=== PATIENT | female | born 1995 | race Caucasian/White ===

== ENCOUNTER 2023-10-22 20:24 | Emergency (ER) | payer BC, SELFPAY ==
[2023-10-22 20:25] VITALS: BP 114/70
--- NOTE | 2023-10-22 21:28 | ED.GENMED ---
History of Present Illness
General
Chief Complaint: Fainting/Passed Out
Source: patient
Exam Limitations: none
Time Seen by Provider: 10/22/23 20:42
Travel History
Have you had any contact with someone who has COVID-19?: No
Do you have any symptoms of coronavirus? Fever > 100 degrees, chills, cough, shortness of breath, sore throat, loss of taste or smell, muscle aches, or headache?: No
History of Present Illness
History of Present Illness:
The patient is a G1, P0 who is about 30 weeks and presents after experiencing severe lightheadedness and passing out this evening. Patient reports that she just gotten up after eating dinner, felt extremely lightheaded, and the next thing
she remembers was waking up on the floor. Patient reports that she hit her head against the floor. She feels a tender lump along the right side of her head. She denies neck pain. She denies nausea and vomiting. She denies dizziness and light
sensitivity. Patient reports that she has passed out at least twice in the past. Patient reports that over the last several weeks, she has been experiencing multiple episodes of lightheadedness throughout the day. She denies all chest pain and
shortness of breath. She denies history of PE and DVT.
Past History
Past History
ED Past Medical History: Other (Multiple severe allergic reactions to antibiotics)
ED Past Surgical History: Appendectomy and Other (Gastric sleeve surgery)
Social History
Tobacco: Non-smoker
Alcohol: None
Drug: None
Personal:
Living: with family
Employment: Other
Family History
Family History: Other
Review of Systems
Review of Systems
Allergies reviewed?: Yes
All Other Systems: ROS reviewed and negative except as documented in HPI and ROS
Constitutional: Reports no symptoms
EENT: Reports no symptoms
Respiratory: Reports no symptoms
Cardiac: Reports syncope
ABD/GI: Reports no symptoms
: Reports no symptoms
Musculoskeletal: Reports no symptoms
Skin: Reports no symptoms
Neurological: Reports headache (mild)
Endocrine: Reports no symptoms
Hematologic/Lymphatic: Reports no symptoms
Psychiatric: Reports no symptoms
Phy Exam
Physical Exam
Physical Exam:
Physical Exam
General: no apparent distress, not acutely ill. Mild right parietal scalp contusion. Patient is completely conversational, smiling
Neck: supple. no meningeal signs. normal psoterior pharynx. Nontender C-spine
Heart: s1/s2 regular rate and rhythm, no murmur. equal radial pulses. No vertebral spine tenderness
Lungs: no acute respiratory distress. clear bilaterally
Abdomen: Soft, gravid uterus
Neuro: alert and oriented. no focal neurological deficits
Skin: no rash
Psychiatric: well kept. interactive and cooperative
Extremities: no edema. no calf tenderness. negative homans. good distal pulses
Course
Orders/Labs/Results
Orders:
Orders
10/22/23
Non Stress Test Routine
10/22/23 21:26
Electrocardiogram (*1) Urgent
Reason for Study: Syncope
EKG- Treatment ONCE
10/22/23 21:27
Orthostatic VS- Treatment ONCE
10/22/23 22:26
Complete Blood Count/With Diff Urgent
Comprehensive Metabolic Panel Urgent
Troponin I Urgent
10/22/23 22:34
Acetaminophen [Tylenol] 1,000 mg PO NOW STA
10/22/23 23:05
Ferric Gluconate [Ferrlecit] 125 mg IV HD-ONCE ONE
10/22/23 23:18
0.9% Sodium Chloride 1000 ml [Nss] 1,000 ml IV BOLUS
Abnormal Lab Results
10/22/23
22:26
WBC 16.7 H 10^3/uL
(4.8-10.8)
RBC 3.34 L 10^6/uL
(4.20-5.40)
Hgb 8.1 L g/dL
(12.0-16.0)
Hct 25.4 L %
(37.0-47.0)
MCV 76.0 L fL
(81.0-99.0)
MCH 24.3 L pg
(27.0-31.0)
MCHC 31.9 L g/dL
(33.0-37.0)
RDW 15.4 H %
(11.5-14.5)
MPV 11.4 H fL
(7.4-10.4)
Abs Immat Gran (auto) 0.3 H 10^3/uL
(0-0.05)
Absolute Neuts (auto) 13.3 H 10^3/uL
(1.4-6.5)
Absolute Monos (auto) 1.3 H 10^3/uL
(0.1-0.6)
Immature Gran % 1.7 H %
(0-0.5)
Neutrophils % 79.6 H %
(42.2-75.2)
Lymphocytes % 10.2 L %
(20.5-51.1)
Sodium 133 L mmol/L
(135-145)
BUN 5 L mg/dl
(7-17)
Creatinine 0.4 L mg/dL
(0.6-1.0)
10/22/23 22:26
10/22/23 22:26
Vital Signs
Initial and Last Documented VS:
Initial Vital Signs
Temp Pulse Resp BP Pulse Ox
98.4 F 88 22 114/70 98
10/22/23 20:25 10/22/23 20:25 10/22/23 20:25 10/22/23 20:25 10/22/23 20:25
Last Documented Vital Signs
Temp Pulse Resp BP Pulse Ox
98.4 F 88 22 114/70 98
10/22/23 20:25 10/22/23 20:25 10/22/23 20:25 10/22/23 20:25 10/22/23 20:25
MDM/Problems Addressed
Differential Diagnosis Includes:
Orthostatic hypotension, vasovagal reaction, anemia
MDM/Problems Addressed:
Patient presents after an episode of lightheadedness and passing out
Chronic conditions affecting care:
Patient reports she is a history of anemia
*Pulse Oximetry
Patient hypoxic: no
*EKG
Interpreted by ED Provider?: Yes
Interpretation: normal
Comparison EKG: no comparison EKG present
Rate: normal
Rhythm: sinus
[place]: normal axis
Interval: normal interval
QRS Pattern: normal QRS
Ischemia: no ischemia
*Crate Icer Interpretation
Rate: normal
Interpretation: normal
Rhythm: sinus
*Critical Care Note
Total Time (30-74mins, 75-104mins- exclusive of procedures): Not Applicable
Data Reviewed
Review of Other/Old Records Reveals: Discharge Summary (Discharge summary reviewed from hospitalist from 2022 when patient was admitted for gallstone pancreatitis)
Source: patient and family
Patient Management
Discussion with other providers: Other (Spoke to OB publications inspector, Dr Quinones, who recommended iron infusion in ED. Dr Quinones assured me that the OB office will follow up with her and help her get follow up with hematology)
Escalation/DeEscalation of care consider admission/obs:
Patient remains well-appearing. She has had no photophobia, dizziness, or severe headache to suggest intracranial injury. So, decision made to not do a CAT scan of the head.
Patient denies all chest pain and shortness of breath. I do feel that it is her anemia that has been causing her to feel lightheaded, leading her to have a syncopal episode today. Patient looks well and stable, thus, I do not think she needs to be
admitted. I was assured from OB doctor on-call, Dr Quinones, that the OB office will reach out to the patient to arrange prompt follow-up as well as follow-up with hematology. Patient is comfortable this plan. She feels well enough to go home.
Patient understands that her anemia must be addressed promptly and that she should return with any shortness of breath or chest pain, or any other concerns.
Patient understands that she needs to follow-up with her OB this week to discuss her anemia and to arrange follow-up with hematology.
ED Attending Note
-
Portions of this chart may have been created with voice recognition software.� Occasional wrong word or��sound alike� substitutions may have occurred due to the inherent limitations of voice recognition software.
Discharge Plan
Departure
Patient with high blood pressure during this ER visit?: No
Condition: Good
Covid-19: Not Applicable
Discharge Problem:
Symptomatic anemia, Closed head injury
Instructions: Head injury in adults, Anemia, Possibly From Low Iron, Adult ED
Prescriptions:
No Action
oxycodone 5 mg tablet
5 mg PO Q6HPRN PRN (Reason: breakthrough/severe pain) Qty: 5 0RF
Referrals:
Jossie Chairez MD [Family Provider] -
Activity Restrictions/Additional Instructions:
It is extremely important that you follow-up with your abstract writer as soon as possible. If you do not hear from your abstract writer's office within 24 hours, please call them and arrange follow-up to see them this week. They will help you follow-up
with hematology (blood doctor) to discuss your anemia (low blood counts). Your low blood count is likely contributing to your lightheadedness. Please return with any increased difficulty breathing or chest pain.
Interventions
Interventions:
*Risk Screen - Suicide Last Done: 10/22/23 20:25
*Neglect/Abuse Screening Last Done: 10/22/23 20:25
[2023-10-22 22:35] LABS: % Basophils 0.4 % (0-2); % Eosinophils 0.5 % (0-6); % Immature Granulocytes 1.7 % (0-0.5); % Lymphocytes 10.2 % (20.5-51.1); % Monocytes 7.6 % (1.7-9.3); % Neutrophils 79.6 % (42.2-75.2); Absolute Basophils 0.1 10^3/uL (0-0.2); Absolute Eosinophils 0.1 10^3/uL (0-0.7); Absolute Immature Granulocytes 0.3 10^3/uL (0-0.05); Absolute Lymphocytes 1.7 10^3/uL (1.2-3.4); Absolute Monocytes 1.3 10^3/uL (0.1-0.6); Absolute Neutrophils 13.3 10^3/uL (1.4-6.5); Hematocrit 25.4 % (37.0-47.0); Hemoglobin 8.1 g/dL (12.0-16.0); Mean Corp Hgb Conc. 31.9 g/dL (33.0-37.0); Mean Corpuscular Hgb 24.3 pg (27.0-31.0); Mean Platelet Volume 11.4 fL (7.4-10.4); Nucleated Red Blood Cells % 0 %; Platelet Count 250 10^3/uL (130-400); Red Blood Cell Count 3.34 10^6/uL (4.20-5.40); Red Cell Dist. Width 15.4 % (11.5-14.5); White Blood Cell Count 16.7 10^3/uL (4.8-10.8)
[2023-10-22 22:51] LABS: ALT (SGPT) 17 U/L (0-35); AST (SGOT) 28 U/L (14-36); Albumin 3.6 g/dl (3.5-5.0); Alkaline Phosphatase 119 U/L (38-126); Blood Urea Nitrogen 5 mg/dl (7-17); Calcium 8.8 mg/dl (8.4-10.2); Carbon Dioxide 22 mmol/L (22-30); Chloride 106 mmol/L (98-107); Glucose 94 mg/dl (70-99); Sodium 133 mmol/L (135-145); Total Bilirubin 0.3 mg/dl (0.2-1.3); Total Protein 6.5 g/dl (6.3-8.2); eGFR > 60.00
[2023-10-22 23:02] LABS: Troponin I < 0.012 ng/ml
[2023-10-22 23:17] VITALS: BP 105/65; BP 117/71; BP 117/76; PULSE 69; PULSE 78; PULSE 80
[2023-10-22] MEDS: NSS 1000 IV (23:21)
[2023-10-22 23:29] VITALS: BMI 44.1
[2023-10-22] MEDS: TYLENOL 1000 MG PO (23:50)
[2023-10-22] MEDS: FERRLECIT 110 MG IV (23:51)
[2023-10-23 00:30] VITALS: BP 117/76
== END 2023-10-23 01:21 | disposition home or self-care (01) ==
LOC: EMR 20:24
PROVIDERS: EMERGENCY PHYSICIAN Emergency Medicine; FAMILY PHYSICIAN Emergency Medicine
DX: O99.013 Anemia complicating pregnancy, third trimester (principal); R55 Syncope and collapse; S09.90XA Unspecified injury of head, initial encounter; S00.03XA Contusion of scalp, initial encounter; R51.9 Headache, unspecified; Z3A.30 30 weeks gestation of pregnancy; O26.893 Other specified pregnancy related conditions, third trimester; W19.XXXA Unspecified fall, initial encounter; Z98.84 Bariatric surgery status; Z88.1 Allergy status to other antibiotic agents; Z88.2 Allergy status to sulfonamides
CPT/HCPCS: 99284; 96374; 96361 ×2; 59025; 80053; 84484; 85025; 93005; J2916

== ENCOUNTER 2023-10-26 16:54 | Emergency (ER) | payer BC, SELFPAY ==
[2023-10-26 16:55] VITALS: BP 126/71
--- NOTE | 2023-10-26 17:54 | ED.GENMED ---
History of Present Illness
General
Chief Complaint: Fainting Sensation
Source: patient
Exam Limitations: none
Time Seen by Provider: 10/26/23 17:43
Travel History
Have you had any contact with someone who has COVID-19?: No
Do you have any symptoms of coronavirus? Fever > 100 degrees, chills, cough, shortness of breath, sore throat, loss of taste or smell, muscle aches, or headache?: No
History of Present Illness
History of Present Illness:
See MDM
Past History
Past History
ED Past Medical History: Other (Multiple severe allergic reactions to antibiotics)
ED Past Surgical History: Appendectomy and Other (Gastric sleeve surgery)
Social History
Tobacco: Non-smoker
Alcohol: None
Drug: None
Personal:
Living: with family
Employment: Other
Family History
Family History: Other
Phy Exam
Physical Exam
Physical Exam:
See MDM
Course
Orders/Labs/Results
Orders:
Orders
10/26/23 18:16
Type+Screen Urgent
Complete Blood Count/With Diff Urgent
Comprehensive Metabolic Panel Urgent
Abnormal Lab Results
10/26/23
18:16
WBC 15.4 H 10^3/uL
(4.8-10.8)
RBC 3.39 L 10^6/uL
(4.20-5.40)
Hgb 8.2 L g/dL
(12.0-16.0)
Hct 25.6 L %
(37.0-47.0)
MCV 75.5 L fL
(81.0-99.0)
MCH 24.2 L pg
(27.0-31.0)
MCHC 32.0 L g/dL
(33.0-37.0)
RDW 17.1 H %
(11.5-14.5)
MPV 11.3 H fL
(7.4-10.4)
Abs Immat Gran (auto) 0.4 H 10^3/uL
(0-0.05)
Absolute Neuts (auto) 11.6 H 10^3/uL
(1.4-6.5)
Absolute Monos (auto) 1.4 H 10^3/uL
(0.1-0.6)
Immature Gran % 2.8 H %
(0-0.5)
Neutrophils % 75.4 H %
(42.2-75.2)
Lymphocytes % 11.8 L %
(20.5-51.1)
Sodium 131 L mmol/L
(135-145)
Carbon Dioxide 20 L mmol/L
(22-30)
BUN 6 L mg/dl
(7-17)
Creatinine 0.3 L mg/dL
(0.6-1.0)
AST 42 H U/L
(14-36)
10/26/23 18:16
10/26/23 18:16
Vital Signs
Initial and Last Documented VS:
Initial Vital Signs
Temp Pulse Resp BP Pulse Ox
98.0 F 89 18 126/71 100
10/26/23 16:55 10/26/23 16:55 10/26/23 16:55 10/26/23 16:55 10/26/23 16:55
Last Documented Vital Signs
Temp Pulse Resp BP Pulse Ox
98.0 F 89 18 126/71 100
10/26/23 16:55 10/26/23 16:55 10/26/23 16:55 10/26/23 16:55 10/26/23 16:55
MDM/Problems Addressed
Differential Diagnosis Includes:
HPI and MDM Narrative:
28-year-old female G1, P0 at 30 weeks 1 day gestation presenting with weakness and dizziness. Patient was here few days ago for syncope and she was transfused iron for symptomatic anemia. Patient was sitting down at lunch and she felt her eyes
rolled back as she was going to pass out. Patient believes her hemoglobin is low again. She denies vaginal bleeding.
Patient had outpatient blood work showing elevated TIBC but normal iron saturation levels and normal iron levels
Physical exam
General: Well appearing and non-toxic
HEENT: protecting airway. Mildly dry mucous membranes
Neck: appears supple
CV: No evidence of cyanosis. Regular rate and rhythm
Resp: No accessory muscle use
Abd: Gravid abdomen
Extremities: No deformities
Neuro: alert
Psych: Normal affect
Skin: Intact
Problems Addressed including Acute and Chronic Conditions affecting care:
1. Near syncope
Acuity: acute
Prognosis: stable
Details: Likely in setting of dehydration and anemia. Will repeat blood work
2. Anemia
Acuity: acute
Prognosis: stable
Details: Patient denies any bleeding. Hematology curbside who indicated no need for another iron transfusion but happy to follow-up as an outpt
Updates
Case discussed with OB who will have NST performed bedside
Differential Diagnosis (but not limited to): Symptomatic anemia, dehydration
Testing considered: EKG
Drug therapy (if applicable): OTC meds, please see d/c instruction regarding Rx drugs
Amount and/or Complexity of Data Reviewed
Clinical info obtained from: Patient
External data reviewed: N/A
Labs I independently reviewed (but not limited to): Hemoglobin 8.2
Radiology: N/A
Pulse Ox: not hypoxic
EKG independently reviewed: N/A
Front End Architect: N/A
Critical Care: N/A
Risk of Complication:
Social Determinants of health: Good social support
Discussed with other providers: hematology, obstetrics
Escalation of Care includes Admit/Obs: After being observed in the Emergency Department, pt stable for discharge.
Occasional wrong word or 'sound a like' substitutions may have occurred due to the inherent limitations of voice recognition software. Read the chart carefully and recognize, using context, where substitutions have occurred.
*Critical Care Note
Total Time (30-74mins, 75-104mins- exclusive of procedures): Not Applicable
ED Attending Note
-
Portions of this chart may have been created with voice recognition software.� Occasional wrong word or��sound alike� substitutions may have occurred due to the inherent limitations of voice recognition software.
Discharge Plan
Departure
Patient Disposition: Home (Routine Discharge)
Patient with high blood pressure during this ER visit?: No
Discharge Problem:
Symptomatic anemia
Instructions: Anemia Caused by Low Iron, Adult (DC)
Prescriptions:
No Action
oxycodone 5 mg tablet
5 mg PO Q6HPRN PRN (Reason: breakthrough/severe pain) Qty: 5 0RF
Referrals:
Jossie Chairez MD [Family Provider] -
Pastor Moore MD [Active] -
Activity Restrictions/Additional Instructions:
Please return for any worsening symptoms.
You may return at any time if you have further concerns.
Please follow up with your OB doctor at the first available appointment, preferably this week. Please make an appointment to see the box bender.
Thank you for choosing [facility].
Interventions
Interventions:
*Risk Screen - Suicide Last Done: 10/26/23 16:55
*General Assessment Last Done: 10/26/23 16:55
*Neglect/Abuse Screening Last Done: 10/26/23 16:55
*ED COVID-19 Vaccine History Last Done: 10/26/23 16:55
*Nursing Disposition Last Done: 10/26/23 22:08
ED- Cardiac Assessment Last Done: 10/26/23 18:30
ED- Neurological Assessment Last Done: 10/26/23 18:30
Discharge Date and Time
Discharge Date/Time: 10/26/23 22:08
[2023-10-26 18:22] LABS: % Basophils 0.5 % (0-2); % Eosinophils 0.8 % (0-6); % Immature Granulocytes 2.8 % (0-0.5); % Lymphocytes 11.8 % (20.5-51.1); % Monocytes 8.7 % (1.7-9.3); % Neutrophils 75.4 % (42.2-75.2); Absolute Basophils 0.1 10^3/uL (0-0.2); Absolute Eosinophils 0.1 10^3/uL (0-0.7); Absolute Immature Granulocytes 0.4 10^3/uL (0-0.05); Absolute Lymphocytes 1.8 10^3/uL (1.2-3.4); Absolute Monocytes 1.4 10^3/uL (0.1-0.6); Absolute Neutrophils 11.6 10^3/uL (1.4-6.5); Hematocrit 25.6 % (37.0-47.0); Hemoglobin 8.2 g/dL (12.0-16.0); Mean Corpuscular Hgb 24.2 pg (27.0-31.0); Mean Corpuscular Volume 75.5 fL (81.0-99.0); Mean Platelet Volume 11.3 fL (7.4-10.4); Nucleated Red Blood Cells % 0 %; Platelet Count 256 10^3/uL (130-400); Red Blood Cell Count 3.39 10^6/uL (4.20-5.40); Red Cell Dist. Width 17.1 % (11.5-14.5); White Blood Cell Count 15.4 10^3/uL (4.8-10.8)
[2023-10-26 18:35] LABS: ALT (SGPT) 18 U/L (0-35); AST (SGOT) 42 U/L (14-36); Albumin 3.5 g/dl (3.5-5.0); Alkaline Phosphatase 99 U/L (38-126); Blood Urea Nitrogen 6 mg/dl (7-17); Calcium 8.6 mg/dl (8.4-10.2); Carbon Dioxide 20 mmol/L (22-30); Chloride 106 mmol/L (98-107); Glucose 73 mg/dl (70-99); Potassium 4.7 mmol/L (3.5-5.1); Sodium 131 mmol/L (135-145); Total Bilirubin 0.4 mg/dl (0.2-1.3); Total Protein 6.4 g/dl (6.3-8.2); eGFR > 60.00
== END 2023-10-26 22:08 | disposition home or self-care (01) ==
LOC: EMR 16:54
PROVIDERS: EMERGENCY PHYSICIAN Student in an Organized Health Care Education/Training Program; FAMILY PHYSICIAN Emergency Medicine
DX: O99.013 Anemia complicating pregnancy, third trimester (principal); Z3A.30 30 weeks gestation of pregnancy
CPT/HCPCS: 99283; 80053; 85025; 86850; 86900; 86901

== ENCOUNTER 2023-12-11 12:53 | Emergency (ER) | payer BC, SELFPAY ==
[2023-12-11] VITALS (9 sets, daily range): BP systolic 94–122; BP diastolic 66–89; PULSE 78–87
[2023-12-11 13:59] LABS: % Basophils 0.4 % (0-2); % Eosinophils 0.6 % (0-6); % Immature Granulocytes 1.2 % (0-0.5); % Lymphocytes 9.3 % (20.5-51.1); % Monocytes 7.8 % (1.7-9.3); % Neutrophils 80.7 % (42.2-75.2); Absolute Basophils 0.1 10^3/uL (0-0.2); Absolute Eosinophils 0.1 10^3/uL (0-0.7); Absolute Immature Granulocytes 0.2 10^3/uL (0-0.05); Absolute Lymphocytes 1.2 10^3/uL (1.2-3.4); Absolute Neutrophils 10.1 10^3/uL (1.4-6.5); Hematocrit 31.4 % (37.0-47.0); Hemoglobin 9.8 g/dL (12.0-16.0); Mean Corp Hgb Conc. 31.2 g/dL (33.0-37.0); Mean Corpuscular Hgb 24.3 pg (27.0-31.0); Mean Corpuscular Volume 77.7 fL (81.0-99.0); Mean Platelet Volume 10.9 fL (7.4-10.4); Nucleated Red Blood Cells % 0 %; Platelet Count 204 10^3/uL (130-400); Red Blood Cell Count 4.04 10^6/uL (4.20-5.40); Red Cell Dist. Width 19.7 % (11.5-14.5); Urine Albumin Trace (Neg - Trace); Urine Bilirubin Negative (Negative); Urine Character Clear (Clear); Urine Color Yellow; Urine Glucose Negative (Negative); Urine Ketone Trace (Negative); Urine Leukocyte 1+ (Negative); Urine Nitrite Negative (Negative); Urine Occult Blood Negative (Negative); Urine Specific Gravity 1.025 (<1.030); Urine Urobilinogen Negative (Neg - 1+); White Blood Cell Count 12.5 10^3/uL (4.8-10.8)
[2023-12-11 14:15] LABS: ALT (SGPT) 13 U/L (0-35); AST (SGOT) 20 U/L (14-36); Albumin 3.4 g/dl (3.5-5.0); Alkaline Phosphatase 169 U/L (38-126); Blood Urea Nitrogen 7 mg/dl (7-17); Calcium 9.2 mg/dl (8.4-10.2); Carbon Dioxide 23 mmol/L (22-30); Chloride 106 mmol/L (98-107); Glucose 100 mg/dl (70-99); Lipase 44 U/L (23-300); Potassium 4.1 mmol/L (3.5-5.1); Sodium 133 mmol/L (135-145); Total Bilirubin 0.2 mg/dl (0.2-1.3); Total Protein 6.2 g/dl (6.3-8.2); eGFR > 60.00
--- NOTE | 2023-12-11 14:20 | ED.GENMED ---
History of Present Illness
<Priscila Patterson PA-C - Last Filed: 12/14/23 21:18>
General
Chief Complaint: Fainting/Passed Out
Source: patient
Exam Limitations: none
Time Seen by Provider: 12/11/23 13:39
Nursing documentation reviewed up to this point in time: agreed with
Travel History
Have you had any contact with someone who has COVID-19?: No
Do you have any symptoms of coronavirus? Fever > 100 degrees, chills, cough, shortness of breath, sore throat, loss of taste or smell, muscle aches, or headache?: No
History of Present Illness
History of Present Illness:
Patient is a 28 year old at 36 weeks presenting for evaluation in emergency department following syncopal episode earlier today. Patient states that she was in the grocery store about an hour or so ago when she started to feel very lightheaded
and passed out. She states she was unconscious for only less than 5 seconds. She did not hit her head. Patient denies any preceding chest pain, shortness of breath, nausea, vomiting.
Patient also endorses recent intermittent lower abdominal cramping and spotting that began yesterday. She denies any headache, visual changes, neck pain/back pain, urinary symptoms, fever, chills.
Patient does report difficulty keeping food and liquids down over the past 2 weeks due to persistent nausea throughout her .
Patient has her next OIL ANALYST appointment scheduled for this coming .
Of note�patient has been seen in our emergency department twice during this for symptomatic anemia. She states that this does feel similar to prior episodes.
Patient does have a history of a gastric sleeve in April 2022.
Past History
<Priscila Patterson PA-C - Last Filed: 12/14/23 21:18>
Past History
ED Past Medical History: Other (Multiple severe allergic reactions to antibiotics)
ED Past Surgical History: Appendectomy and Other (Gastric sleeve surgery)
Social History
Tobacco: Non-smoker
Alcohol: None
Drug: None
Personal:
Living: with family
Employment: Other
Family History
Family History: Other
Phy Exam
<Priscila Patterson PA-C - Last Filed: 12/14/23 21:18>
Physical Exam
Physical Exam:
General: In no apparent distress, nontoxic appearing
Vitals: Vital signs stable, afebrile
HEENT: Atraumatic, normocephalic; pupils equal round and reactive light bilaterally, extraocular muscle intact, protecting airway, uvula midline
Neck: appears supple, trachea midline
CV: Regular rate and rhythm, heart sounds normal, no evidence of cyanosis
Resp: No evidence of respiratory distress, lungs clear bilateral
Abd: Gravid abdomen, nontender
Extremities: Bilateral nonpitting edema of lower extremities
Neuro: alert and oriented x 3; speech normal, strength 5 out of 5 in upper and lower extremities, normal finger-nose, sensation fully intact
Psych: Normal affect
Skin: Intact
Course
<Priscila Patterson PA-C - Last Filed: 12/14/23 21:18>
Orders/Labs/Results
Orders:
Orders
12/11/23 12:56
EKG [Electrocardiogram (*1)] Urgent
Reason for Study: Fatigue / Weakness
EKG- Treatment ONCE
12/11/23 13:49
Complete Blood Count/With Diff Urgent
Comprehensive Metabolic Panel Urgent
Lipase Urgent
Urinalysis Reflex To Culture Urgent
Date Specimen was Collected: 12/11/23
Time Specimen was Collected: 13:41
Urine Microscopic Reflex Cult Urgent
Urine Culture Urgent
SAMANTHA Source: U
Specimen Description:
Date Specimen was Collected: 12/11/23
Time Specimen was Collected: 13:41
12/11/23 14:58
Orthostatic VS- Treatment ONCE
0.9% Sodium Chloride 1000 ml [Nss] 1,000 ml IV BOLUS
12/11/23 15:30
Consult Cardiology [CARDIOLOGY CONSULT] Urgent
Consulting Provider: Apryl Ames
Was physician already notified: Yes
12/11/23 15:34
Echo 2D MMode Color/Doppler [Echo 2D MMode Color/Doppler] Stat
Reason for Study: recurrent syncope, 36 wks
Cardiology Consult: Apryl Ames
12/11/23 15:38
Orthostatic VS- Treatment ONCE
12/11/23 15:44
Orthostatic Vital Signs As Directed
Orthostatic VS Frequency: Now
Abnormal Lab Results
12/11/23
13:49
WBC 12.5 H 10^3/uL
(4.8-10.8)
RBC 4.04 L 10^6/uL
(4.20-5.40)
Hgb 9.8 L g/dL
(12.0-16.0)
Hct 31.4 L %
(37.0-47.0)
MCV 77.7 L fL
(81.0-99.0)
MCH 24.3 L pg
(27.0-31.0)
MCHC 31.2 L g/dL
(33.0-37.0)
RDW 19.7 H %
(11.5-14.5)
MPV 10.9 H fL
(7.4-10.4)
Abs Immat Gran (auto) 0.2 H 10^3/uL
(0-0.05)
Absolute Neuts (auto) 10.1 H 10^3/uL
(1.4-6.5)
Absolute Monos (auto) 1.0 H 10^3/uL
(0.1-0.6)
Immature Gran % 1.2 H %
(0-0.5)
Neutrophils % 80.7 H %
(42.2-75.2)
Lymphocytes % 9.3 L %
(20.5-51.1)
Sodium 133 L mmol/L
(135-145)
Creatinine 0.5 L mg/dL
(0.6-1.0)
Glucose 100 H mg/dl
(70-99)
Alkaline Phosphatase 169 H U/L
(38-126)
Total Protein 6.2 L g/dl
(6.3-8.2)
Albumin 3.4 L g/dl
(3.5-5.0)
Urine Ketones Trace A
(Negative)
Leukocyte Esterase Rfl 1+ A
(Negative)
Urine WBC (Reflex) 21-25 A /HPF
(0-5)
Urine Bacteria (Reflex) Many A
(Negative)
12/11/23 13:49
12/11/23 13:49
Vital Signs
Initial and Last Documented VS:
Initial Vital Signs
Temp Pulse Resp BP Pulse Ox
99.3 F 99 16 122/87 98
12/11/23 13:00 12/11/23 13:00 12/11/23 13:00 12/11/23 13:00 12/11/23 13:00
Last Documented Vital Signs
Temp Pulse Resp BP Pulse Ox
99.3 F 75 22 115/66 99
12/11/23 13:00 12/11/23 16:21 12/11/23 16:21 12/11/23 16:21 12/11/23 16:21
Richielt;Marcus Coronado DO - Last Filed: 12/11/23 20:03>
Orders/Labs/Results
Orders:
Orders
12/11/23 12:56
EKG [Electrocardiogram (*1)] Urgent
Reason for Study: Fatigue / Weakness
EKG- Treatment ONCE
12/11/23 13:49
Complete Blood Count/With Diff Urgent
Comprehensive Metabolic Panel Urgent
Lipase Urgent
Urinalysis Reflex To Culture Urgent
Date Specimen was Collected: 12/11/23
Time Specimen was Collected: 13:41
Urine Microscopic Reflex Cult Urgent
Urine Culture Urgent
SAMANTHA Source: U
Specimen Description:
Date Specimen was Collected: 12/11/23
Time Specimen was Collected: 13:41
12/11/23 14:58
Orthostatic VS- Treatment ONCE
0.9% Sodium Chloride 1000 ml [Nss] 1,000 ml IV BOLUS
12/11/23 15:30
Consult Cardiology [CARDIOLOGY CONSULT] Urgent
Consulting Provider: Apryl Ames
Was physician already notified: Yes
12/11/23 15:34
Echo 2D MMode Color/Doppler [Echo 2D MMode Color/Doppler] Stat
Reason for Study: recurrent syncope, 36 wks
Cardiology Consult: Apryl Ames
12/11/23 15:38
Orthostatic VS- Treatment ONCE
12/11/23 15:44
Orthostatic Vital Signs As Directed
Orthostatic VS Frequency: Now
Abnormal Lab Results
12/11/23
13:49
WBC 12.5 H 10^3/uL
(4.8-10.8)
RBC 4.04 L 10^6/uL
(4.20-5.40)
Hgb 9.8 L g/dL
(12.0-16.0)
Hct 31.4 L %
(37.0-47.0)
MCV 77.7 L fL
(81.0-99.0)
MCH 24.3 L pg
(27.0-31.0)
MCHC 31.2 L g/dL
(33.0-37.0)
RDW 19.7 H %
(11.5-14.5)
MPV 10.9 H fL
(7.4-10.4)
Abs Immat Gran (auto) 0.2 H 10^3/uL
(0-0.05)
Absolute Neuts (auto) 10.1 H 10^3/uL
(1.4-6.5)
Absolute Monos (auto) 1.0 H 10^3/uL
(0.1-0.6)
Immature Gran % 1.2 H %
(0-0.5)
Neutrophils % 80.7 H %
(42.2-75.2)
Lymphocytes % 9.3 L %
(20.5-51.1)
Sodium 133 L mmol/L
(135-145)
Creatinine 0.5 L mg/dL
(0.6-1.0)
Glucose 100 H mg/dl
(70-99)
Alkaline Phosphatase 169 H U/L
(38-126)
Total Protein 6.2 L g/dl
(6.3-8.2)
Albumin 3.4 L g/dl
(3.5-5.0)
Urine Ketones Trace A
(Negative)
Leukocyte Esterase Rfl 1+ A
(Negative)
Urine WBC (Reflex) 21-25 A /HPF
(0-5)
Urine Bacteria (Reflex) Many A
(Negative)
12/11/23 13:49
12/11/23 13:49
Vital Signs
Initial and Last Documented VS:
Initial Vital Signs
Temp Pulse Resp BP Pulse Ox
99.3 F 99 16 122/87 98
12/11/23 13:00 12/11/23 13:00 12/11/23 13:00 12/11/23 13:00 12/11/23 13:00
Last Documented Vital Signs
Temp Pulse Resp BP Pulse Ox
99.3 F 75 22 115/66 99
12/11/23 13:00 12/11/23 16:21 12/11/23 16:21 12/11/23 16:21 12/11/23 16:21
<Priscila Patterson PA-C - Last Filed: 12/14/23 21:18>
MDM/Problems Addressed
Differential Diagnosis Includes:
Not limited to: Symptomatic anemia, vasovagal syncope, dehydration, cardiac arrhythmia, hypotension, valvular dysfunction
MDM/Problems Addressed:
Patient is a 28-year-old female at 36 weeks gestation presenting for evaluation following syncopal episode earlier today. She has been dealing with symptomatic anemia resulting in syncope throughout the duration of her , this is her third
visit. She did not hit her head or sustain any trauma today when she syncopized. She does report intermittent abdominal cramping over the past few days. Her vital signs are stable on arrival. Exam as above. She does appear somewhat pale.
Neurologically intact. Heart regular. Lungs clear. Good distal pulses. Will check basic labs, urinalysis. Will start IV fluids. Will discuss with OIL ANALYST given this is her third visit for syncope during .
EKG done in triage shows sinus tachycardia with occasional PVCs.
Labs are significant for a very mild leukocytosis of 12.5 and hemoglobin of 9.8 which is actually increased from 8.2 about 1.5 months ago. Labs show mild dehydration, otherwise no clinically significant abnormalities. Urinalysis does show some
bacteria and WBC but also many squamous cells suggesting likely contamination.
Discussed with OIL ANALYST who recommend evaluation by cardiology given syncope in the setting of PVCs on EKG. Cardiology will consult
Cardiology performed bedside echo and cleared patient from their standpoint. Patient was sent to OIL ANALYST for nonstress test. Stable at time of discharge from emergency department to outpatient nonstress test on hospital campus.
Chronic conditions affecting care:
, anemia
Acute Exacerbation and/or Progression of Chronic Illness:
Anemia
<Priscila Patterson PA-C - Last Filed: 12/14/23 21:18>
*Pulse Oximetry
Patient hypoxic: no
*EKG
Interpreted by ED Provider?: Yes
EKG Intrepretation Date: 12/11/23
Interpretation: abnormal
Comparison EKG: changes noted
Heart Rate: 102
Rate: tachycardiac
Rhythm: PAC's
Ischemia: no ischemia
*Php Consultant Interpretation
Rate: tachycardiac
Interpretation: normal
Heart Rate: 75
Rhythm: sinus and PAC's
*Critical Care Note
Total Time (30-74mins, 75-104mins- exclusive of procedures): Not Applicable
Data Reviewed
Review of Other/Old Records Reveals: Labs and Records
Source: patient and previous hospital records
<Priscila Patterson PA-C - Last Filed: 12/14/23 21:18>
Patient Management
Discussion with other providers: Dye Reel Operator (OIL ANALYST and cardiology)
Escalation/DeEscalation of care consider admission/obs:
Sent to OIL ANALYST for nonstress test
ED Attending Note
<MARI Concepcion Last Filed: 12/14/23 21:18>
-
Portions of this chart may have been created with voice recognition software.� Occasional wrong word or��sound alike� substitutions may have occurred due to the inherent limitations of voice recognition software.
<Marcus Coronado DO - Last Filed: 12/11/23 20:03>
ED Attending Note
Patient seen and examined by attending physician: Yes
I performed the substantive portion of visit, reviewed & personally made and approve the management plan that is documented in note by myself or PABLO.: Yes
ED Attending Note:
Patient is a 28-year-old female 1 para 0 who presents 36 weeks due on January 01 after a syncopal episode. Patient has had previous syncopal episodes that was due to anemia requiring transfusion. Patient thinks she may have had some
vaginal spotting. Patient denies any abdominal pain. Patient states she gets lightheaded as well as nauseous and mildly diaphoretic but denies any chest pain, shortness of breath or palpitations. Patient denies fever or chills. Patient denies
any leg pain or swelling. On physical exam patient does appear somewhat pale. Heart is regular and lungs are clear. Fundus is appropriate for dates. Patient has no peripheral edema and has good pulses. Do not believe the patient has a PE.
Reviewed the patient's EKG and findings. Patient was checked by cardiology and had an echocardiogram and then a nonstress test with OB.
Discharge Plan
Departure
Patient Disposition: Home (Routine Discharge)
Date of Disposition: 12/11/23
Time of Disposition: 16:52
Patient with high blood pressure during this ER visit?: No
Condition: Good
Covid-19: Not Applicable
Discharge Problem:
Syncope
Instructions: Syncope (Fainting) (DC)
Prescriptions:
No Action
oxycodone 5 mg tablet
5 mg PO Q6HPRN PRN (Reason: breakthrough/severe pain) Qty: 5 0RF
Referrals:
Marcus Martinez DO [Family Provider] -
Belen Gomez DO [Emergency Provider] - Next open appointment
Activity Restrictions/Additional Instructions:
- Return to the emergency department for any high fevers, chest pain, shortness of breath, persistent lightheadedness/fainting, severe abdominal pain, persistent dizziness, worsening current symptoms, or any other concerns
-As discussed is important to stay well-hydrated
-It is important to follow-up with your OIL ANALYST as soon as possible
Interventions
Interventions:
*Risk Screen - Suicide Last Done: 12/11/23 13:42
*General Assessment Last Done: 12/11/23 13:42
*Neglect/Abuse Screening Last Done: 12/11/23 13:42
ED- Fall Risk Assessment Last Done: 12/11/23 14:58
*ED COVID-19 Vaccine History Last Done: 12/11/23 13:00
*Nursing Disposition Last Done: 12/11/23 16:43
ED- Cardiac Assessment Last Done: 12/11/23 14:58
ED- Neurological Assessment Last Done: 12/11/23 14:58
Discharge Date and Time
Discharge Date/Time: 12/11/23 16:45
Print Language: TOGOLESE
[2023-12-11 14:37] LABS: Urine Bacteria Many (Negative); Urine Red Blood Cell 0-2 /HPF (0-2); Urine Squamous Cell >30 /LPF (Few); Urine White Cell 21-25 /HPF (0-5)
[2023-12-11] MEDS: NSS 1000 IV (15:08)
--- NOTE | 2023-12-11 16:40 | CON.CAR ---
Addendum entered and electronically signed by Apryl Ames MD 12/11/23 16:58:
I saw and examined the patient.
The Web Retailer's note was reviewed and I agree with the note.
Comment: Discussed case with the patient and her mother at the bedside. Patient is with history of prior gastric sleeve. Has had vomiting throughout the and tries her best with taking in food and liquids. She also has anemia
and issues with absorption.
She has had 3 episodes of syncope/near syncope during and 1 episode previously post surgery prior to . Suspect some autonomic dysfunction, dehydration related to intermittent vomiting and difficulty keeping food and fluids down
at times. Discussed this at length. EKG is stable. Echocardiogram without abnormality. We reviewed at length.
She did receive IV fluids which made her feel better.
Plan at this time is good hydration and small frequent meals.
Continue follow-up with obstetrics.
Continue to follow hemoglobin.
I discussed isometric exercises.
I discussed to lay down or get low when she is feeling the symptoms given she seems to have a long premonitory phase.
I also discussed wearing her compression stockings on in the morning and off in the p.m.
No cardiac active issues at this time other than those related to dehydration in . No cardiac follow-up needed.
Original Note:
Consultation
Consultation Request
Date/Time Consultation Requested: 12/11/2023
Date/Time Consultation Performed: 12/11/2023
Requesting Provider: Dr. Lopez
Performing Provider: Elizabeth Salguero PA-C for Dr. Apryl Ames
Reason for Consultation: Syncope
Medical History
-
History of Present Illness:
Patient is a 28-year-old female with past medical history significant for obesity status post gastric sleeve April 2022, necrotizing pancreatitis with retained gallstone requiring cholecystectomy September 2022 who is currently 36 weeks
who presents with recurrent syncope. Patient reports she had syncopal events 10/22/2023, 10/26/2023 as well as today. She reports she was walking in the food store and became weak dizzy and diaphoretic. She was able to make it to a caf� and sit
down and rest for a little while. She then attempted to get up and once again developed symptoms and passed out. She reports she is attempting to stay hydrated with water and Gatorade. However she reports since her gastric sleeve she vomits at
least 4-5 times a week. She notes occasional intermittent palpitations but denies chest pain, shortness of breath, edema, orthopnea or PND.
PMH:
Obesity
Gastric sleeve April 2022
Necrotizing pancreatitis secondary to retained stone following gastric sleeve
Cholecystectomy September 2022
Depression
Appendectomy
[place] teeth extraction
History of remote syncope
Past Medical History
Past Medical History: Other (See HPI)
Past Surgical History: Appendectomy, Cholecystectomy and Other (Gastric bypass sleeve 04/2022)
Social History
Tobacco: Non-Smoker
Alcohol: None
Drug: None
Personal:
Living: With Family
Employment: Employed ()
Family History
Family History: CAD (Father had [place] at 57)
Allergies / Home Medications
Allergy/AdvReac Type Severity Reaction Status Date / Time
cephalexin [From Keflex] Allergy Unknown Verified 12/11/23 13:04
clindamycin Allergy Fowler-Eh Verified 12/11/23 13:04
Syndrome
sulfamethoxazole Allergy Unknown Verified 12/11/23 13:04
[From Bactrim]
trimethoprim [From Bactrim] Allergy Unknown Verified 12/11/23 13:04
�Medication �Instructions �Recorded �Confirmed �Type
oxycodone 5 mg tablet 5 mg PO Q6HPRN PRN 09/23/22 Rx
breakthrough/severe pain #5 tabs
Review of Systems
-
History Source: Patient
All other systems: Negative unless noted
Physical Exam
Vital Signs
Temp Pulse Resp BP Pulse Ox
99.3 F 75 22 115/66 99
12/11/23 13:00 12/11/23 16:21 12/11/23 16:21 12/11/23 16:21 12/11/23 16:21
GEN: No distress, awake, Ox3, obese
HEENT: supple, anicteric, mmm
LUNGS: CTA, no wheezes/rales
CV: Reg, S1/S2, no murmur, rubs or gallops
ABD: abdomen, BS+, NT/ND
EXT: trace edema, no clubbing or cyanosis
NEURO: Gross non-focal
SKIN: No rash,, warm, dry, pink
Lab Results
12/11/23 13:49
12/11/23 13:49
Impression / Plan
-
Logistics Director: Dr. Lopez
Promotion Writer: None prior to visit, initial consult Dr. Apryl Ames
Impression:
Presents 12/11/2023 with syncope
Syncope prior to
3 episodes of syncope during 10/22/2023, 10/26/2023, 02/10/2024
Obesity
Gastric sleeve April 2022
Necrotizing pancreatitis secondary to retained stone following gastric sleeve
Depression
Cholecystectomy September 2022
Appendectomy
[place] teeth extraction
Echo 12/11/2023: EF 60 to 65% with normal regional wall motion. Mild MR, PAP 20 to 25 mmHg
Plan:
-Presented 12/11/2023 with syncope. Patient reports she felt weak, dizzy/lightheaded associated with diaphoresis prior to syncopal event
-Suspect vasovagal etiology likely secondary to dehydration and poor intake with episodes of frequent nausea and vomiting
-Patient getting IV fluids in emergency department
-Orthostatic blood pressure negative
-EKG normal sinus rhythm without evidence of arrhythmia on telemetry in emergency department
-Echocardiogram shows preserved ejection fraction with no significant valvular disease
-Would recommend utilizing compression stockings upon awakening
-Advised patient to stay well-hydrated, salt to diet, small frequent meals
Data Reviewed
-
EKG: Report Reviewed by me, Discussed with Physician, Discussed with Nurse, Discussed with Patient and Discussed with Family
Medical Tests (Nuc Med, Echo etc): Image Personally Visualized and interpreted, Report Reviewed by me, Discussed with Physician, Discussed with Nurse and Discussed with Patient
Labs: Labs Reviewed by me, Discussed with Physician, Discussed with Nurse and Discussed with Patient
Old Records: Reviewed
== END 2023-12-11 16:45 | disposition home or self-care (01) ==
LOC: EMR 12:53
PROVIDERS: Physician Assistant; CONSULT PHYSICIAN Internal Medicine Cardiovascular Disease; EMERGENCY PHYSICIAN Obstetrics & Gynecology; FAMILY PHYSICIAN Family Medicine
DX: O99.413 Diseases of the circulatory system complicating pregnancy, third trimester (principal); R55 Syncope and collapse; Z3A.36 36 weeks gestation of pregnancy
CPT/HCPCS: 99285; 96360; 80053; 81003; 81015; 83690; 85025; 87086; 93005; 93306

== ENCOUNTER 2024-01-03 06:41 | Inpatient (IN) | payer BC, SELFPAY ==
[2024-01-03 07:04] VITALS: BP 104/80; BMI 45.8
[2024-01-03 08:02] LABS: % Basophils 0.5 % (0-2); % Eosinophils 0.7 % (0-6); % Immature Granulocytes 1.2 % (0-0.5); % Monocytes 7.6 % (1.7-9.3); Absolute Basophils 0.1 10^3/uL (0-0.2); Absolute Eosinophils 0.1 10^3/uL (0-0.7); Absolute Immature Granulocytes 0.2 10^3/uL (0-0.05); Absolute Lymphocytes 1.3 10^3/uL (1.2-3.4); Absolute Monocytes 1.1 10^3/uL (0.1-0.6); Absolute Neutrophils 11.6 10^3/uL (1.4-6.5); Hematocrit 31.8 % (37.0-47.0); Hemoglobin 9.8 g/dL (12.0-16.0); Mean Corp Hgb Conc. 30.8 g/dL (33.0-37.0); Mean Corpuscular Hgb 24.6 pg (27.0-31.0); Mean Corpuscular Volume 79.7 fL (81.0-99.0); Mean Platelet Volume 11.3 fL (7.4-10.4); Nucleated Red Blood Cells % 0 %; Platelet Count 198 10^3/uL (130-400); Red Blood Cell Count 3.99 10^6/uL (4.20-5.40); Red Cell Dist. Width 18.8 % (11.5-14.5); White Blood Cell Count 14.3 10^3/uL (4.8-10.8)
[2024-01-03] MEDS: SUBLIMAZE 100 MCG EPIDURAL (09:21)
[2024-01-03] MEDS: FENTANYL/BUPIVACAINE 100 EPIDURAL ×2 (09:24→17:04)
[2024-01-03] MEDS: PITOCIN 30 UNITS/NSS 500 ML IV (16:31)
[2024-01-03] MEDS: TYLENOL 1000 MG PO (19:36)
[2024-01-03] MEDS: VANCOCIN 200 IV (19:46)
[2024-01-03] MEDS: GENTAMICIN 53.75 MG IV (20:46)
--- NOTE | 2024-01-03 21:14 | PHA.KIN.INIT ---
Assessment / Plan
- Assessment
Renal Function: Unknown baseline, Other (USED 0.5 FROM 12/21/23 FOR CALCULATIONS)
- Plan
PER GLOBALRPH: GENTAMYCIN 115MG IV Q8H YIELDS A TROUGH OF 0.38; PEAK = 5.
Initial Pharmacokinetics Note
- -
Patient Age: 28
Patient Sex: Female
Antibiotic: Gentamicin
Antibiotic Day #: 1
Indication: Leatha (Ldrp)
Requesting Provider: BERNARDO
Pertinent Antimicrobial Allergies:
Allergies
cephalexin [From Keflex] Allergy (Verified 01/03/24 07:01)
Unknown
clindamycin Allergy (Verified 01/03/24 07:01)
Fowler-Eh Syndrome
sulfamethoxazole [From Bactrim] Allergy (Verified 01/03/24 07:01)
Unknown
trimethoprim [From Bactrim] Allergy (Verified 01/03/24 07:01)
Unknown
Height / Weight:
Height 5 ft 2 in
Actual Weight 113.398 kg
- Vital Signs / Lab results
Temp Pulse Resp BP
97.6 F 99 20 104/80
01/03/24 07:04 01/03/24 07:04 01/03/24 07:04 01/03/24 07:04
Maximum Temperature:
Lab Results - Hematology
01/03/24
07:47
WBC 14.3 H
Historical Micro:
Concomitant Antimicrobials:
[2024-01-03 21:55] LABS: Cord ABG Comment CORD BLOOD
[2024-01-03 21:56] LABS: B.E. Cord ABG -6.2 mMOL/L; HCO3 Cord ABG 21.1 mmol/L; O2 Saturation % Cord ABG 51.1 %; PCO2 Cord ABG 47 mmHg; PO2 Cord ABG 28 mmHg; pH Cord ABG 7.26
[2024-01-03 21:58] LABS: B.E. Cord ABG -7.5 mMOL/L; HCO3 Cord ABG 18.8 mmol/L; O2 Saturation % Cord ABG 68.6 %; PCO2 Cord ABG 40 mmHg; PO2 Cord ABG 36 mmHg; pH Cord ABG 7.28
[2024-01-03] MEDS: TORADOL 15 MG IV (22:22)
[2024-01-04] MEDS: TYLENOL 650 MG PO ×3 (05:20→19:20)
[2024-01-04] MEDS: MOTRIN 600 MG PO ×3 (05:20→19:20)
[2024-01-04 06:27] LABS: Hematocrit 30.9 % (37.0-47.0); Hemoglobin 9.6 g/dL (12.0-16.0)
[2024-01-04] MEDS: FEOSOL 325 MG PO (08:10)
[2024-01-04] MEDS: LEXAPRO 10 MG PO (08:10)
[2024-01-04] MEDS: PRENATAL PLUS 1 TABLET PO (08:10)
[2024-01-04] MEDS: SENOKOT-S 1 TABLET PO (08:10)
[2024-01-04] MEDS: PROTONIX 40 MG PO (14:44)
[2024-01-05] MEDS: TYLENOL 650 MG PO ×2 (06:18→13:33)
[2024-01-05] MEDS: MOTRIN 600 MG PO ×2 (06:18→13:33)
[2024-01-05] MEDS: PROTONIX 40 MG PO (08:58)
[2024-01-05] MEDS: PRENATAL PLUS 1 TABLET PO (08:58)
[2024-01-05] MEDS: FEOSOL 325 MG PO (08:58)
[2024-01-05] MEDS: LEXAPRO 10 MG PO (08:58)
[2024-01-05 14:34] LABS: Syphilis/T. pallidum Ab Reflex Negative (Negative)
== END 2024-01-05 16:49 | disposition home or self-care (01) | DRG 807 ==
LOC: LDRP 06:41
PROVIDERS: Obstetrics & Gynecology; ADMITTING PHYSICIAN Obstetrics & Gynecology
PROC: 10S0XZZ Reposition Products of Conception, External Approach (ICD-10-PCS; 2024-01-03)
PROC: 10E0XZZ Delivery of Products of Conception, External Approach (ICD-10-PCS; 2024-01-03)
PROC: 0HQ9XZZ Repair Perineum Skin, External Approach (ICD-10-PCS; 2024-01-03)
DX: O76 Abnormality in fetal heart rate and rhythm complicating labor and delivery (principal); Z37.0 Single live birth; O70.0 First degree perineal laceration during delivery; O66.0 Obstructed labor due to shoulder dystocia; Z3A.39 39 weeks gestation of pregnancy; O99.344 Other mental disorders complicating childbirth; F41.9 Anxiety disorder, unspecified; F32.A Depression, unspecified
CPT/HCPCS: 88307; 36415; 82803; 85014; 85018; 85025; 86780; 86850; 86900; 86901; J1580